=== PATIENT | female | born 1995 ===

== ENCOUNTER 2024-07-30 21:40 | Emergency (ER) | payer MEDICAID, OTHER | END 2024-07-31 00:05 | disposition home or self-care (01) | LOC: CC.ED 21:40 | DX: S92.531A Displaced fracture of distal phalanx of right lesser toe(s), initial encounter for closed fracture (principal); V49.50XA Passenger injured in collision with unspecified motor vehicles in traffic accident, initial encounter; Y92.410 Unspecified street and highway as the place of occurrence of the external cause | CPT/HCPCS: 70450; 73110-LT; 73620-RT; 99284; 99285 ==